=== PATIENT | male | born 1980 | race Hispanic/Latino ===

== ENCOUNTER → 2019-11-13 | Outpatient (CLI) | payer OTHER ==
--- NOTE | 2019-11-13 16:04 | Diagnostic Imaging Report ---
EXAM: Focused Soft Tissue Ultrasound Evaluation of the left groin INDICATION: ^[id number] ^[id number] ^LEFT GROIN MASS COMPARISON: None TECHNIQUE: Guzman scale, color Doppler images of the left groin were obtained. FINDINGS: Multiple enlarged left inguinal lymph nodes measure up to 2.5 x 1.7 cm and 3.7 x 1.4 cm. IMPRESSION: Nonspecific left inguinal lymphadenopathy. These may be reactive, however short interval clinical and/or imaging follow-up is recommended. If there is history of malignancy, percutaneous FNA sampling can be considered. Signed by: Angel Deras MD on 11/13/2019 4:01 PM
== END ==
LOC: US 14:16
PROVIDERS: ATTEND Family Medicine
DX: R19.09 Other intra-abdominal and pelvic swelling, mass and lump (principal)
CPT/HCPCS: 76882